=== PATIENT | male | born 1955 | race African-American/Black ===

== ENCOUNTER 2018-07-09 06:01 | Inpatient (IN) | payer OTHER ==
[2018-07-09] VITALS (12 sets, daily range): BP systolic 96–142; BP diastolic 64–95
[~2018-07-09] VITALS: Ht 182.9 cm; Wt 119.7 kg
[~2018-07-09 06:01] MED LIST: ASPIR 8181 MG ORAL; HYDROCHLOROTHIA25 MG ORAL; LOSARTAN POTAS100 MG ORAL; METFORMIN HCL1000 M1 ORAL; NIFEDIPINE ER90 M2 ORAL
[2018-07-09] MEDS ORDERED: NS Irrig 1000ml ONE (07:00)
[2018-07-09] MEDS ORDERED: LR 1000ml ONE (07:00)
[2018-07-09] MEDS ORDERED: Sterile Water Irrig 1000ml IRRIG ONE (07:00)
--- NOTE | 2018-07-09 07:08 | Pre-Procedure Note/Attestation ---
Pre-Procedure Note/Attestation Complete Prior to Procedure Planned Procedure: left Procedure Narrative: Left Knee Degenerative Joint disease, Planned procedure: Left Total Knee Resurfacing Attestation I attest that I discussed the nature of the procedure; its benefits; risks and complications; and alternatives (and the risks and benefits of such alternatives ), prior to the procedure, with the patient (or the patient's legal training representative). I attest that, if there was a reasonable possibility of needing a blood transfusion, the patient (or the patient's legal training representative) was given the [facility] standardized written summary, pursuant to the [employer] [place] Blood Safety Act ([place] Health and Safety Code # 1645, as amended). I attest that I re-evaluated the patient just prior to the surgery and that there has been no change in the patient's H&P, except as documented below: Morgan Hayward Jul 09, 2018 07:08
[2018-07-09] MEDS ORDERED: Midazolam 2mg/2ml Inj ONE (07:10)
[2018-07-09] MEDS ORDERED: fentaNYL 100 mcg/2 mL IV ONE (07:10)
[2018-07-09] MEDS ORDERED: Lidocaine 1% MPF 10mg/ml 5ml ONE (07:11)
[2018-07-09] MEDS ORDERED: Propofol 200mg/20ml IV ONE ×6 (07:11→10:03)
[2018-07-09] MEDS ORDERED: NeoSporin Gu Irrig 1ml Amp IRRIG ONE (07:15)
[2018-07-09] MEDS ORDERED: Duramorph PF 5mg/10ml amp ONE (07:15)
[2018-07-09] MEDS ORDERED: Bacitracin 50000 Units Vial ONE (07:15)
[2018-07-09] MEDS ORDERED: Bupivacaine 0.5% Inj 30 ml vial INJ ONE (07:15)
[2018-07-09] MEDS ORDERED: LR 1000ml 1,000 ML IVLG SCH (08:23)
[2018-07-09] MEDS ORDERED: HYDROmorphone 1mg/ml Carpuject IVP PRN (08:30)
[2018-07-09] MEDS ORDERED: LORazepam Inj 2mg/ml 1ml IV PRN (08:30)
[2018-07-09] MEDS ORDERED: DiphenhydrAMINE 50mg/ml Inj IVP PRN (08:30)
--- NOTE | 2018-07-09 08:30 | Anethesia Preoperative Eval ---
Anesthesia Pre-op PMH/ROS General Date of Evaluation: Jul 09, 2018 Time of Evaluation: 07:10 Anesthesiologist: Manuel ASA Score: ASA 3 Mallampati Score Class I : Soft palate, uvula, fauces, pillars visible Class II: Soft palate, uvula, fauces visible Class III: Soft palate, base of uvula visible Class IV: Only hard plate visible Mallampati Classification: Class II Surgeon: Sterling Diagnosis: Degeeratiive joint disease Surgical Procedure: Left total knee arthroplasty Family History: no anesthesia problems Allergies: Coded Allergies: No Known Allergies (Unverified , 07/09/18) Medications: see eMAR Patient NPO?: Yes NPO Date: Jul 08, 2018 NPO Time: 09:30 Past Medical History Cardiovascular: Reports: HTN; Denies: CAD, MT, valve dz, arrhythmia, other Pulmonary: Denies: asthma, COPD, LOVELY, other Gastrointestinal/Genitourinary: Denies: GERD, CRI, ESRD, other Neurologic/Psychiatric: Denies: dementia, CVA, depression/anxiety, TIA, other Endocrine: Reports: DM; Denies: hypothyroidism, steroids, other HEENT: Denies: cataract (L), cataract (R), glaucoma, KOTZEBUE (L), KOTZEBUE (R), other Hematology/Immune: Denies: anemia, DVT, bleeding disorder, other Musculoskeletal/Integumentary: Denies: OA, RA, DJD, DDD, edema, other PMH Narrative: HTN, DM PSxH Narrative: Knee scope, AP, shoulder Anesthesia Pre-op Phys. Exam Physician Exam Last Vital Signs Date Time Temp Pulse Resp B/P (MAP) Pulse Ox O2 Delivery O2 Flow Rate FiO2 07/09/18 06:20 Room Air 07/09/18 06:19 97.6 88 18 137/72 (93) 96 97.6 Constitutional: NAD Neurologic: CN 2-12 intact Cardiovascular: RRR, no M/R/G Respiratory: CTA Gastrointestinal: S/NT/ND Airway Exam Mallampati Score: Class II MO: full ROM: full Teeth: intact Anesthesia Pre-op A/P Labs WNL Accucheck 181 Studies Pre-op Studies: EKG - NSR Risk Assessment & Plan Assessment: Class 3 patient for TKR Plan: Spinal with Duramorph Status Change Before Surgery: No Pre-Antibiotics Drug: Ancef Given Within 1 Hr of Incision: Yes Time Given: 07:45 Home Jackson MD Jul 09, 2018 08:30
--- NOTE | 2018-07-09 08:32 | Immediate Post-Op Evaluation ---
Immediate Post-Op Evalulation Immediate Post-Op Evalulation Procedure: Left total knee arthroplasty Date of Evaluation: Jul 09, 2018 Time of Evaluation: 10:30 IV Fluids: 1500 Estimated Blood Loss: 150 Urinary Output: 400 Blood Pressure Systolic: 106 Blood Pressure Diastolic: 70 Pulse Rate: 72 Respiratory Rate: 10 O2 Sat by Pulse Oximetry: 100 Temperature (Fahrenheit): 98.5 Pain Score (1-10): 0 Nausea: No Vomiting: No Complications No complication Patient Status: reacts, patent, none Hydration Status: adequate Drug: Ancef Given Within 1 Hr of Incision: Yes Time Given: 07:45 Home Jackson MD Jul 09, 2018 08:32
[2018-07-09] MEDS ORDERED: Milk of Magnesia 30ml Ud ORAL PRN (10:15)
[2018-07-09] MEDS ORDERED: LORazepam 1mg tab ORAL PRN (10:15)
[2018-07-09] MEDS ORDERED: Naloxone 0.4mg/ml Inj IVP PRN (10:15)
[2018-07-09] MEDS ORDERED: PCA Education Pamphlet MISC ONE (10:15)
[2018-07-09] MEDS ORDERED: HYDROcodone/Acetamin 7.5/325 tab ORAL PRN (10:15)
[2018-07-09] MEDS ORDERED: Rate Change PCA 1 Each MISC PRN (10:15)
[2018-07-09] MEDS ORDERED: PCA HYDROmorphone 1mg/ml 30 ML IV PRN (10:15)
--- NOTE | 2018-07-09 10:28 | Operative Note - PDOC ---
Operative Note Operative Note Chief Complaint: Left Knee Pain Pre-op Diagnosis: End Stage Degenerative Joint Disease Left Knee Procedure: Left TKR Post-op Diagnosis: same as pre-op Operative Findings: consistent w/pre-op dx studies Surgeon: Sterling Carton Liner: Yesy ROMERO Anesthesiologist: Manuel Anesthesia: general Specimen: yes Complications: none Condition: stable Estimated Blood Loss: minimal Drains: hemovac Tourniquet time: 85 - min Implant(s) used?: Yes - Annmarie Natural Knee Morgan Hayward Jul 09, 2018 10:28
--- NOTE | 2018-07-09 11:43 | General Progress Note ---
Assessment/Plan Assessment/Plan End Stage Degenerative Joint Disease Left Knee Left TKR PLAN 1. incentive spirometry 2. Lovenox 3. PT evaluation and therapy 4. Hydration 5. Pain management 6. discharge once stable with outpatient follow up Subjective Allergies: Coded Allergies: No Known Allergies (Unverified , 07/09/18) Subjective post op care noted Objective Last 24 Hour Vital Signs Date Time Temp Pulse Resp B/P (MAP) Pulse Ox O2 Delivery O2 Flow Rate FiO2 07/09/18 11:37 18 07/09/18 11:30 98.5 07/09/18 11:30 98.5 73 19 111/72 99 Nasal Cannula 2.0 98.5 07/09/18 11:22 19 07/09/18 11:15 98.5 71 18 110/70 99 Nasal Cannula 2.0 98.5 07/09/18 11:07 19 07/09/18 11:00 18 07/09/18 11:00 98.5 07/09/18 11:00 70 19 112/70 99 Nasal Cannula 2.0 07/09/18 10:45 65 18 108/68 100 Simple Mask 6.0 07/09/18 10:30 68 19 96/64 100 Simple Mask 6.0 07/09/18 10:24 209.3 72 10 100 07/09/18 10:20 66 18 102/64 100 Simple Mask 6.0 07/09/18 10:15 67 19 100/65 100 Simple Mask 6.0 07/09/18 10:10 98.5 79 18 106/70 100 Simple Mask 6.0 98.5 07/09/18 06:20 Room Air 07/09/18 06:19 97.6 88 18 137/72 (93) 96 97.6 Intake and Output 07/08/18 07/09/18 19:00 07:00 # Voids 1 Height (Feet): 6 Height (Inches): 0.00 Weight (Pounds): 227 Objective WDWN NAD clear breath sounds bilaterally without rhonchi or wheeze [id number] without MRG NABS nontender no HSM no CCE nonfocal knee dressed Matt Jones MD Jul 09, 2018 11:43
--- NOTE | 2018-07-09 12:05 | Diagnostic Imaging Report ---
Indication: Left knee pain. Status post surgery 2 views of the left knee were obtained. Findings: Cemented total knee arthroplasty demonstrated normal in alignment and position. There is no acute fracture. There are anterior skin tylor, soft tissue and joint air and a small drain noted within the surgical bed. IMPRESSION: Status post total knee arthroplasty.
[2018-07-09] MEDS: Acetaminophen 500mg (ES) tab ORAL SCH ×2 (12:28→17:21)
[2018-07-09] MEDS: 1/2NS w/KCl 20mEq 1000ml 1,000 ML IV SCH ×2 (12:28→22:32)
[2018-07-09] MEDS ORDERED: Docusate 100mg cap ORAL SCH (13:00)
[2018-07-09] MEDS: ceFAZolin 1gm/50ml Premix 50 ML IV SCH (15:24)
[2018-07-09] MEDS: DiphenhydrAMINE 50mg/ml Inj IVP PRN (15:32)
[2018-07-09] MEDS: Docusate Sod/Senna tab ORAL SCH (17:22)
[2018-07-09] MEDS: PCA shift volume MISC SCH (19:56)
[2018-07-09 21:22] LABS: CREATININE 1.4 MG/DL (0.55-1.30)
[2018-07-09] MEDS ORDERED: metFORMIN 500mg tab ORAL SCH (22:00)
--- NOTE | 2018-07-09 23:45 | Operative Note - Dictated ---
DATE OF OPERATION: 07/09/2018 FACILITY: [facility]. SURGEON: Morgan Katz M.D. PAINT DIPPER: Eduin Carrington ANESTHESIOLOGIST: Dr. Jackson. ANESTHESIA: Spinal and general. PREOPERATIVE DIAGNOSIS: Tricompartmental osteoarthritis, left knee, with notable patella baja. POSTOPERATIVE DIAGNOSIS: Tricompartmental osteoarthritis, left knee, with notable patella baja. OPERATIVE PROCEDURE: Resurfacing arthroplasty, left knee using a Annmarie Natural Knee with an Ingrowth size 5 femur and Ingrowth size 4 tibial base plate with a 9 mm congruent polyethylene insert and two 45 mm APR screws. The patella was resurfaced with a 7 mm all poly insert that was cemented in place. DESCRIPTION OF OPERATIVE PROCEDURE: The patient was induced in the supine position after having an adequate spinal block instilled by Dr. Jackson. The left leg was then prepped and draped freely. A block was placed lateral to the thigh to maintain the knee in neutral position during the procedure. Also, a bump was placed on the table to facilitate holding the knee in flexion during the procedure. The leg was elevated. A proximal tourniquet was inflated to 250 mmHg. A medial parapatellar incision was made and carried down through skin and subcutaneous tissue exposing the extensor apparatus. An incision in the capsule was made medial to the patella and along the medial border of the infrapatellar ligament to the tibial tuberosity. The quads tendon was split centrally proximally for a distance of approximately 2 inches. The lateral retinaculum was released and the infrapatellar ligament was isolated so that the patella could be rotated 180 degrees to expose its articular surface. The fat pad was removed. Patella was measured and a patellar cutting jig was then inserted and a cut involving the articular surface a small amount of the posterior bone of the patella was removed leaving more than two-thirds of the patella intact. The cut surface was planed and anchoring holes were made for a size 1 all poly 7 mm polyethylene insert. The knee was then flexed and a jig was used to cannulate the distal femoral medullary canal. Alignment alexandria was used to check for weightbearing alignment. The cutting block was then placed and the distal femoral cut was made taking more medial than lateral femoral condyle in extension. The femur was then sized and a size 5 femur was chosen. The anterior, posterior, chamfer, and notch cuts were then made over the template and a trial reduction was accomplished with good fit at all surfaces. The tibia was then subluxed forward with a bent-knee retractor blunt and the remnants of the medial and lateral meniscus was removed. The PCL was recessed over the posterior border of the tibia and the tibial alignment jig was then positioned. It was checked for alignment and rotation as well as weightbearing axis. The jig was secured with 2 set pins and the proximal tibial cut was then made. Cut corresponded to that that was templated on weightbearing x-rays prior to the procedure. The central anchoring hole was made as well as the peripheral anchors and a trial tibia was placed along with a 9 mm congruent polyethylene insert. Trial reduction revealed full extension, good stability throughout range of motion to 100 degrees. The femoral and tibial components were then placed permanently using two 45 mm APR screws to anchor the tibial component and also a 9 mm polyethylene insert. Femur was tapped into place and was Ingrowth. The patella was cemented and excess cement was then removed. Range of motion tracking was checked. There was adequate contact in the groove throughout full range of motion. There was no medial or lateral instability of the patella with normal Q angle. Tourniquet was then released. Bleeders were coagulated. The medial capsule was closed with interrupted sutures of #1 Vicryl. The subcutaneous tissue and skin were closed separately. A medium Hemovac without pressurization was placed in the defect created by the lateral release. The patient was placed in a compression dressing and returned to recovery room in good condition. ESTIMATED BLOOD LOSS: 100 mL. Morgan Katz M.D. DR: Migel JOB#: [id number] CC:
[2018-07-10] VITALS: BP 134/83
[2018-07-10] MEDS: ceFAZolin 1gm/50ml Premix 50 ML IV SCH ×3 (00:13→17:33)
[2018-07-10 04:00] VITALS: BP 130/57
[2018-07-10] MEDS: PCA shift volume MISC SCH ×2 (07:38→19:45)
[2018-07-10 08:00] VITALS: BP 140/80
[2018-07-10] MEDS: 1/2NS w/KCl 20mEq 1000ml 1,000 ML IV SCH ×3 (08:59→20:30)
[2018-07-10] MEDS: DiphenhydrAMINE 50mg/ml Inj IVP PRN (09:00)
[2018-07-10] MEDS: Acetaminophen 500mg (ES) tab ORAL SCH ×3 (09:01→17:34)
[2018-07-10] MEDS: Tamsulosin 0.4mg cap ORAL SCH ×2 (09:01→17:33)
[2018-07-10] MEDS: Docusate Sod/Senna tab ORAL SCH ×2 (09:01→17:33)
--- NOTE | 2018-07-10 09:13 | 48 Hour Post Anesthesia Eval ---
Post Anesthesia Evaluation Procedure: Left total knee arthroplasty Date of Evaluation: Jul 10, 2018 Time of Evaluation: 09:45 Blood Pressure Systolic: 130 0: 57 Pulse Rate: 72 Respiratory Rate: 20 Temperature (Fahrenheit): 99.5 O2 Sat by Pulse Oximetry: 96 Airway: patent Nausea: Yes Vomiting: Yes - Treated with anti emetics Pain Intensity: 2 - Patient doing very well. Hydration Status: adequate Cardiopulmonary Status: Stable Mental Status/LOC: patient returned to baseline Follow-up Care/Observations: As per surgery Post-Anesthesia Complications: No anesthetic complication Follow-up care needed: N/A Home Jackson MD Jul 10, 2018 09:13
[2018-07-10] MEDS: Enoxaparin 40mg Inj SUBQ SCH (09:17)
[2018-07-10 12:00] VITALS: BP 132/78
[2018-07-10 16:00] VITALS: BP 148/77
[2018-07-10 20:00] VITALS: BP 141/73
[2018-07-10] MEDS: metFORMIN 500mg tab ORAL SCH (20:33)
--- NOTE | 2018-07-10 21:36 | General Progress Note ---
Assessment/Plan Assessment/Plan End Stage Degenerative Joint Disease Left Knee Left TKR PLAN 1. incentive spirometry 2. Lovenox 3. PT evaluation and therapy 4. Hydration 5. Pain management 6. discharge pending for am Subjective Allergies: Coded Allergies: No Known Allergies (Unverified , 07/09/18) Subjective post op care noted able to urinate nausea noted Objective Last 24 Hour Vital Signs Date Time Temp Pulse Resp B/P (MAP) Pulse Ox O2 Delivery O2 Flow Rate FiO2 07/10/18 20:00 20 07/10/18 20:00 99.2 98 18 141/73 (95) 92 99.2 07/10/18 16:00 98.4 88 20 148/77 (100) 94 98.4 07/10/18 16:00 20 07/10/18 12:00 20 07/10/18 12:00 97.6 85 20 132/78 (96) 96 97.6 07/10/18 09:13 211.1 72 20 96 07/10/18 09:00 Room Air 07/10/18 08:00 20 07/10/18 08:00 97.1 89 20 140/80 (100) 96 97.1 07/10/18 04:00 99.5 72 20 130/57 (81) 96 99.5 07/10/18 04:00 20 07/10/18 00:00 20 07/10/18 00:00 98.8 112 20 134/83 (100) 93 98.8 Intake and Output 07/09/18 07/10/18 19:00 07:00 Intake Total 2470 ml 1900 ml Output Total 1110 ml 870 ml Balance 1360 ml 1030 ml Intake Oral 420 ml 800 ml IV Total 2050 ml 1100 ml Output Urine Total 850 ml 250 ml Drainage Total 110 ml 620 ml Estimated Blood Loss 150 ml Height (Feet): 6 Height (Inches): 0.00 Weight (Pounds): 227 Objective WDWN NAD clear breath sounds bilaterally without rhonchi or wheeze [id number] without MRG NABS nontender no HSM no CCE nonfocal knee dressed Matt Jones MD Jul 10, 2018 21:36
[2018-07-11] MEDS: ceFAZolin 1gm/50ml Premix 50 ML IV SCH ×4 (00:02→23:46)
[2018-07-11 00:24] VITALS: BP 139/91
[2018-07-11] MEDS: 1/2NS w/KCl 20mEq 1000ml 1,000 ML IV SCH ×3 (04:00→23:46)
[2018-07-11 04:31] VITALS: BP 140/85
[2018-07-11] MEDS: PCA shift volume MISC SCH ×2 (07:12→19:00)
[2018-07-11 08:00] VITALS: BP 139/79
[2018-07-11] MEDS ORDERED: Naloxone 0.4mg/ml Inj IVP PRN (08:47)
[2018-07-11] MEDS ORDERED: DiphenhydrAMINE 50mg/ml Inj IVP PRN (09:00)
[2018-07-11] MEDS ORDERED: Rate Change PCA 1 Each MISC PRN (09:00)
[2018-07-11] MEDS: Tamsulosin 0.4mg cap ORAL SCH ×2 (09:00→17:38)
[2018-07-11] MEDS ORDERED: PCA HYDROmorphone 1mg/ml 30 ML IV PRN (09:00)
[2018-07-11] MEDS ORDERED: LORazepam 1mg tab ORAL PRN (09:00)
[2018-07-11] MEDS: Docusate Sod/Senna tab ORAL SCH ×2 (09:00→17:38)
[2018-07-11] MEDS: Acetaminophen 500mg (ES) tab ORAL SCH ×3 (09:01→17:39)
[2018-07-11] MEDS: Enoxaparin 40mg Inj SUBQ SCH (09:06)
[2018-07-11 12:00] VITALS: BP 152/86
--- NOTE | 2018-07-11 14:19 | General Progress Note ---
Assessment/Plan Assessment/Plan End Stage Degenerative Joint Disease Left Knee Left TKR PLAN 1. incentive spirometry 2. Lovenox 3. PT evaluation and therapy 4. Hydration 5. Pain management 6. discharge hopefully in am Subjective Allergies: Coded Allergies: No Known Allergies (Unverified , 07/09/18) Subjective post op care noted able to urinate some muscle spasm Objective Last 24 Hour Vital Signs Date Time Temp Pulse Resp B/P (MAP) Pulse Ox O2 Delivery O2 Flow Rate FiO2 07/11/18 09:00 Room Air 07/11/18 08:00 98.1 20 139/79 (99) 94 98.1 07/11/18 08:00 20 07/11/18 04:31 98.9 105 20 140/85 (103) 93 98.9 07/11/18 04:00 20 07/11/18 00:24 98.6 115 20 139/91 (107) 93 98.6 07/10/18 21:00 Room Air 07/10/18 20:00 20 07/10/18 20:00 99.2 98 18 141/73 (95) 92 99.2 07/10/18 16:00 98.4 88 20 148/77 (100) 94 98.4 07/10/18 16:00 20 Intake and Output 07/10/18 07/11/18 19:00 07:00 Intake Total 1325 ml 1260 ml Output Total 2250 ml 80 ml Balance -925 ml 1180 ml Intake Oral 825 ml 360 ml IV Total 500 ml 900 ml Output Urine Total 1800 ml Drainage Total 450 ml 80 ml # Voids 8 4 # Bowel Movements 1 Height (Feet): 6 Height (Inches): 0.00 Weight (Pounds): 264 Objective WDWN NAD clear breath sounds bilaterally without rhonchi or wheeze [id number] without MRG NABS nontender no HSM no CCE nonfocal knee dressed Matt Jones MD Jul 11, 2018 14:19
[2018-07-11 16:00] VITALS: BP 147/96
[2018-07-11 20:26] VITALS: BP 170/104
[2018-07-11] MEDS: metFORMIN 500mg tab ORAL SCH (21:05)
[2018-07-11] MEDS: Enoxaparin 120 mg inj SUBQ SCH (21:13)
[2018-07-12] VITALS: BP_SYST 140; BP_SYST 163; BP_DIAS 83; BP_DIAS 92
[2018-07-12 04:00] VITALS: BP 140/83
[2018-07-12] MEDS: PCA shift volume MISC SCH ×2 (07:00→19:18)
[2018-07-12 08:00] VITALS: BP 121/65
[2018-07-12] MEDS: ceFAZolin 1gm/50ml Premix 50 ML IV SCH ×2 (08:16→16:00)
[2018-07-12] MEDS: Docusate Sod/Senna tab ORAL SCH ×2 (08:17→18:05)
[2018-07-12] MEDS: Enoxaparin 120 mg inj SUBQ SCH ×2 (08:17→21:13)
[2018-07-12] MEDS: Losartan 50mg tab ORAL SCH (08:18)
[2018-07-12] MEDS: Tamsulosin 0.4mg cap ORAL SCH ×2 (08:18→18:05)
[2018-07-12] MEDS: Acetaminophen 500mg (ES) tab ORAL SCH ×3 (08:20→18:05)
[2018-07-12] MEDS: 1/2NS w/KCl 20mEq 1000ml 1,000 ML IV SCH (08:29)
--- NOTE | 2018-07-12 08:55 | General Progress Note ---
Assessment/Plan Assessment/Plan End Stage Degenerative Joint Disease Left Knee Left TKR DVT hypertension PLAN 1. incentive spirometry 2. Lovenox at DVT doses---> Xarelto 3. PT evaluation and therapy 4. antihypertensives 5. Pain management 6. discharge if ok with ortho Subjective Allergies: Coded Allergies: No Known Allergies (Unverified , 07/09/18) Subjective post op care noted acute DVT some muscle spasm elevated BP Objective Last 24 Hour Vital Signs Date Time Temp Pulse Resp B/P (MAP) Pulse Ox O2 Delivery O2 Flow Rate FiO2 07/12/18 08:20 99.2 07/12/18 08:19 110 121/65 07/12/18 08:18 121/65 07/12/18 08:00 18 07/12/18 08:00 99.2 110 19 121/65 (83) 94 99.2 07/12/18 04:00 98.0 109 18 140/83 (102) 98 98.0 07/12/18 04:00 18 07/12/18 00:00 99.5 105 18 163/92 (115) 96 99.5 07/12/18 00:00 18 07/11/18 22:57 106 170/104 07/11/18 21:00 Room Air 07/11/18 20:26 98.7 106 19 170/104 (126) 97 98.7 07/11/18 20:00 18 07/11/18 16:00 98.1 92 18 147/96 (113) 97 98.1 07/11/18 16:00 18 07/11/18 12:00 99.2 105 18 152/86 (108) 93 99.2 07/11/18 12:00 18 07/11/18 09:00 Room Air Intake and Output 07/11/18 07/12/18 19:00 07:00 Intake Total 973 ml 2000 ml Output Total 425 ml 1250 ml Balance 548 ml 750 ml Intake Oral 773 ml 800 ml IV Total 200 ml 1200 ml Output Urine Total 425 ml 1250 ml # Voids 2 3 # Bowel Movements 1 Height (Feet): 6 Height (Inches): 0.00 Weight (Pounds): 264 Objective WDWN NAD clear breath sounds bilaterally without rhonchi or wheeze [id number] without MRG NABS nontender no HSM no CCE nonfocal knee dressed aMtt Jones MD Jul 12, 2018 08:55
--- NOTE | 2018-07-12 09:15 | General Surgery Progress Note ---
General Surgery-Progress Note Subjective Procedure Performed Left TKR Objective Last 24 Hour Vital Signs Date Time Temp Pulse Resp B/P (MAP) Pulse Ox O2 Delivery O2 Flow Rate FiO2 07/12/18 08:20 99.2 07/12/18 08:19 110 121/65 07/12/18 08:18 121/65 07/12/18 08:00 18 07/12/18 08:00 99.2 110 19 121/65 (83) 94 99.2 07/12/18 04:00 98.0 109 18 140/83 (102) 98 98.0 07/12/18 04:00 18 07/12/18 00:00 99.5 105 18 163/92 (115) 96 99.5 07/12/18 00:00 18 07/11/18 22:57 106 170/104 07/11/18 21:00 Room Air 07/11/18 20:26 98.7 106 19 170/104 (126) 97 98.7 07/11/18 20:00 18 07/11/18 16:00 98.1 92 18 147/96 (113) 97 98.1 07/11/18 16:00 18 07/11/18 12:00 99.2 105 18 152/86 (108) 93 99.2 07/11/18 12:00 18 I&O Intake and Output 07/11/18 07/12/18 19:00 07:00 Intake Total 973 ml 2000 ml Output Total 425 ml 1250 ml Balance 548 ml 750 ml Intake Oral 773 ml 800 ml IV Total 200 ml 1200 ml Output Urine Total 425 ml 1250 ml # Voids 2 3 # Bowel Movements 1 Additional Comments Left leg swollen, tende. No wound drainage. Reported from Duplex study, Left Leg DVT, being treated by Dr. Jones. Orthopedic: doing well from PT / OT standpoint. Need discharge planning to coordinate treatment ordered by Morgan Reaves Jul 12, 2018 09:15
[2018-07-12 12:00] VITALS: BP 114/70
[2018-07-12 16:00] VITALS: BP 128/73
[2018-07-12 20:00] VITALS: BP 117/63
[2018-07-12] MEDS: metFORMIN 500mg tab ORAL SCH (21:10)
[2018-07-13] VITALS: BP 122/68
[2018-07-13 04:00] VITALS: BP 140/79
[2018-07-13] MEDS: PCA shift volume MISC SCH (07:00)
[2018-07-13 08:00] VITALS: BP 133/82
[2018-07-13 08:49] LABS: BASOPHILS % (AUTO) 1.2 % (0.0-2.0); EOSINOPHILS % (AUTO) 0.5 % (0.0-3.0); HEMATOCRIT 23.5 % (42.0-52.0); LYMPHOCYTES % (AUTO) 10.4 % (20.0-45.0); MEAN CORPUSCULAR VOLUME 88 FL (80-99); MONOCYTES % (AUTO) 7.5 % (1.0-10.0); NEUTROPHILS % (AUTO) 80.4 % (45.0-75.0); PLATELET COUNT 219 K/UL (150-450); RED BLOOD COUNT 2.68 M/UL (4.70-6.10); RED CELL DISTRIBUTION WIDTH 10.9 % (11.6-14.8); WHITE BLOOD COUNT 8.2 K/UL (4.8-10.8)
[2018-07-13] MEDS: Acetaminophen 500mg (ES) tab ORAL SCH ×3 (08:57→21:23)
[2018-07-13] MEDS: Tamsulosin 0.4mg cap ORAL SCH ×2 (08:57→18:23)
[2018-07-13] MEDS: Docusate Sod/Senna tab ORAL SCH ×2 (08:58→18:22)
--- NOTE | 2018-07-13 08:58 | General Progress Note ---
Assessment/Plan Assessment/Plan End Stage Degenerative Joint Disease Left Knee Left TKR DVT hypertension fever PLAN 1. incentive spirometry 2. Lovenox at DVT doses---> Xarelto x 3 months 3. PT evaluation and therapy 4. antihypertensives 5. Pain management 6. fever work up \ 7. CM to assist with RX on discharge Subjective Allergies: Coded Allergies: No Known Allergies (Unverified , 07/09/18) Subjective post op care noted acute DVT fever to 101 Objective Last 24 Hour Vital Signs Date Time Temp Pulse Resp B/P (MAP) Pulse Ox O2 Delivery O2 Flow Rate FiO2 07/13/18 04:34 99.3 07/13/18 04:04 101.1 07/13/18 04:00 101.0 109 18 140/79 (99) 94 101.0 07/13/18 04:00 18 07/13/18 00:00 99.3 111 18 122/68 (86) 95 99.3 07/13/18 00:00 18 07/12/18 21:00 Room Air 07/12/18 20:00 98.3 104 20 117/63 (81) 97 98.3 07/12/18 20:00 18 07/12/18 16:00 98.6 104 18 128/73 (91) 94 98.6 07/12/18 16:00 18 07/12/18 12:00 18 07/12/18 12:00 98.7 89 18 114/70 (85) 96 98.7 07/12/18 09:00 Room Air Intake and Output 07/12/18 07/13/18 18:59 06:59 Intake Total 600 ml 480 ml Output Total 760 ml 1425 ml Balance -160 ml -945 ml Intake Oral 400 ml 480 ml IV Total 200 ml Output Urine Total 760 ml 1425 ml # Voids 2 2 # Bowel Movements 1 Laboratory Tests 07/13/18 08:10: White Blood Count 8.2, Red Blood Count 2.68L, Hemoglobin 8.0L, Hematocrit 23.5L , Mean Corpuscular Volume 88, Mean Corpuscular Hemoglobin 29.8, Mean Corpuscular Hemoglobin Concent 34.0, Red Cell Distribution Width 10.9L, Platelet Count 219, Mean Platelet Volume 7.2, Neutrophils (%) (Auto) 80.4H, Lymphocytes (%) (Auto) 10.4L, Monocytes (%) (Auto) 7.5, Eosinophils (%) (Auto) 0.5, Basophils (%) (Auto) 1.2 Height (Feet): 6 Height (Inches): 0.00 Weight (Pounds): 264 Objective WDWN NAD clear breath sounds bilaterally without rhonchi or wheeze [id number] without MRG NABS nontender no HSM no CCE nonfocal knee dressed Matt Jones MD Jul 13, 2018 08:58
[2018-07-13] MEDS: Losartan 50mg tab ORAL SCH (08:59)
--- NOTE | 2018-07-13 09:18 | General Surgery Progress Note ---
General Surgery-Progress Note Subjective Procedure Performed Left TKR Objective Last 24 Hour Vital Signs Date Time Temp Pulse Resp B/P (MAP) Pulse Ox O2 Delivery O2 Flow Rate FiO2 07/13/18 08:59 133/82 07/13/18 08:00 99.4 107 20 133/82 (99) 98 99.4 07/13/18 04:34 99.3 07/13/18 04:04 101.1 07/13/18 04:00 101.0 109 18 140/79 (99) 94 101.0 07/13/18 04:00 18 07/13/18 00:00 99.3 111 18 122/68 (86) 95 99.3 07/13/18 00:00 18 07/12/18 21:00 Room Air 07/12/18 20:00 98.3 104 20 117/63 (81) 97 98.3 07/12/18 20:00 18 07/12/18 16:00 98.6 104 18 128/73 (91) 94 98.6 07/12/18 16:00 18 07/12/18 12:00 18 07/12/18 12:00 98.7 89 18 114/70 (85) 96 98.7 I&O Intake and Output 07/12/18 07/13/18 19:00 07:00 Intake Total 500 ml 480 ml Output Total 760 ml 1425 ml Balance -260 ml -945 ml Intake Oral 400 ml 480 ml IV Total 100 ml Output Urine Total 760 ml 1425 ml # Voids 2 2 # Bowel Movements 1 Laboratory Tests Test 07/13/18 08:10 White Blood Count 8.2 K/UL (4.8-10.8) Red Blood Count 2.68 M/UL (4.70-6.10) L Hemoglobin 8.0 G/DL (14.2-18.0) L Hematocrit 23.5 % (42.0-52.0) L Mean Corpuscular Volume 88 FL (80-99) Mean Corpuscular Hemoglobin 29.8 PG (27.0-31.0) Mean Corpuscular Hemoglobin Concent 34.0 G/DL (32.0-36.0) Red Cell Distribution Width 10.9 % (11.6-14.8) L Platelet Count 219 K/UL (150-450) Mean Platelet Volume 7.2 FL (6.5-10.1) Neutrophils (%) (Auto) 80.4 % (45.0-75.0) H Lymphocytes (%) (Auto) 10.4 % (20.0-45.0) L Monocytes (%) (Auto) 7.5 % (1.0-10.0) Eosinophils (%) (Auto) 0.5 % (0.0-3.0) Basophils (%) (Auto) 1.2 % (0.0-2.0) Additional Comments Patient developed temp. overnight >> Dr. Jones following / working up. Orthopedic: stable, doing PT / OT will be on anti-coagulation per Dr. Jones for several months. Morgan Hayward Jul 13, 2018 09:18
[2018-07-13] MEDS: Xarelto 15mg tab ORAL SCH ×2 (10:05→18:23)
--- NOTE | 2018-07-13 10:40 | Diagnostic Imaging Report ---
Indication: Dyspnea Comparison: None A single view chest radiograph was obtained. Findings: No definite infiltrate or pulmonary vascular congestion identified accounting for low lung volumes. The heart is enlarged. The aorta is mildly enlarged consistent with atherosclerotic vascular disease. The bones are osteopenic. Impression: No acute disease
[2018-07-13 12:00] VITALS: BP 126/74
[2018-07-13 16:00] VITALS: BP 132/81
[2018-07-13] MEDS: HYDROmorphone 1mg/ml Carpuject SUBQ PRN (16:49)
[2018-07-13 20:00] VITALS: BP 136/76
[2018-07-13] MEDS: metFORMIN 500mg tab ORAL SCH (21:22)
[2018-07-14] VITALS: BP 125/77
[2018-07-14] MEDS: HYDROmorphone 1mg/ml Carpuject SUBQ PRN (00:45)
[2018-07-14 04:00] VITALS: BP 132/83
[2018-07-14] MEDS: Acetaminophen 500mg (ES) tab ORAL SCH ×3 (06:20→21:38)
[2018-07-14 08:37] VITALS: BP 145/83
[2018-07-14] MEDS: Docusate Sod/Senna tab ORAL SCH ×2 (09:15→18:00)
[2018-07-14] MEDS: Losartan 50mg tab ORAL SCH (09:16)
[2018-07-14] MEDS: Tamsulosin 0.4mg cap ORAL SCH ×2 (09:16→18:00)
[2018-07-14] MEDS: Xarelto 15mg tab ORAL SCH ×2 (09:17→18:00)
[2018-07-14] MEDS: Norco 5mg/325mg tab ORAL PRN (09:21)
--- NOTE | 2018-07-14 09:21 | General Progress Note ---
Assessment/Plan Assessment/Plan End Stage Degenerative Joint Disease Left Knee Left TKR DVT hypertension fever PLAN 1. incentive spirometry 2. Xarelto x 3 months 3. PT evaluation and therapy 4. antihypertensives 5. Pain management 6. fever work up negative 7. dc today if able Subjective Allergies: Coded Allergies: No Known Allergies (Unverified , 07/09/18) Subjective post op care noted acute DVT calf fever low grade Objective Last 24 Hour Vital Signs Date Time Temp Pulse Resp B/P (MAP) Pulse Ox O2 Delivery O2 Flow Rate FiO2 07/14/18 09:16 110 145/83 07/14/18 09:16 145/83 07/14/18 08:37 99.0 110 19 145/83 (103) 100 99.0 07/14/18 06:20 100.2 07/14/18 04:00 100.5 103 19 132/83 (99) 99 100.5 07/14/18 00:45 99.7 07/14/18 00:00 98.3 98 19 125/77 (93) 93 98.3 07/13/18 21:00 Room Air 07/13/18 20:00 99.7 100 19 136/76 (96) 93 99.7 07/13/18 16:00 98.4 102 20 132/81 (98) 95 98.4 07/13/18 12:00 98.7 110 20 126/74 (91) 95 98.7 07/13/18 10:05 107 133/82 Intake and Output 07/13/18 07/14/18 19:00 07:00 Intake Total 840 ml Output Total 1200 ml 800 ml Balance -360 ml -800 ml Intake Oral 840 ml Output Urine Total 1200 ml 800 ml Height (Feet): 6 Height (Inches): 0.00 Weight (Pounds): 264 Objective WDWN NAD clear breath sounds bilaterally without rhonchi or wheeze [id number] without MRG NABS nontender no HSM no CCE nonfocal knee dressed Matt Jones MD Jul 14, 2018 09:21
[2018-07-14 12:58] VITALS: BP 133/80
[2018-07-14] MEDS ORDERED: Fleet's Mineral Oil Enema RECTAL SCH (16:00)
[2018-07-14 16:08] VITALS: BP 136/86
[2018-07-14 20:00] VITALS: BP 138/82
[2018-07-14] MEDS: metFORMIN 500mg tab ORAL SCH (20:46)
[2018-07-15] VITALS: BP 140/85
[2018-07-15 04:00] VITALS: BP 129/77
[2018-07-15] MEDS: Norco 5mg/325mg tab ORAL PRN (04:28)
[2018-07-15] MEDS: Acetaminophen 500mg (ES) tab ORAL SCH ×3 (06:00→21:27)
--- NOTE | 2018-07-15 07:52 | General Progress Note ---
Assessment/Plan Assessment/Plan End Stage Degenerative Joint Disease Left Knee Left TKR DVT hypertension fever PLAN 1. monitor constipation 2. Xarelto x 3 months 3. PT evaluation and therapy 4. antihypertensives 5. Pain management 6. fever work up negative 7. dc in am when RX confirmed approved Subjective Allergies: Coded Allergies: No Known Allergies (Unverified , 07/09/18) Subjective post op care noted acute DVT calf fever low grade resolved constipated s/p enema Objective Last 24 Hour Vital Signs Date Time Temp Pulse Resp B/P (MAP) Pulse Ox O2 Delivery O2 Flow Rate FiO2 07/15/18 04:00 99.1 101 20 129/77 (94) 97 99.1 07/15/18 00:00 99.9 99 19 140/85 (103) 94 99.9 07/14/18 21:17 98.8 07/14/18 21:15 98.8 98.8 07/14/18 21:00 Room Air 07/14/18 20:47 101.0 07/14/18 20:00 101.0 102 18 138/82 (100) 99 101.0 07/14/18 16:08 99.8 107 19 136/86 (103) 94 99.8 07/14/18 12:58 98.6 103 20 133/80 (97) 98.6 07/14/18 09:51 99.0 07/14/18 09:21 99.0 07/14/18 09:16 110 145/83 07/14/18 09:16 145/83 07/14/18 09:00 Room Air 07/14/18 08:37 99.0 110 19 145/83 (103) 100 99.0 Intake and Output 07/14/18 07/15/18 19:00 07:00 Intake Total 860 ml 1600 ml Output Total 700 ml 850 ml Balance 160 ml 750 ml Intake Oral 860 ml 1600 ml Output Urine Total 700 ml 850 ml # Voids 1 # Bowel Movements 2 Height (Feet): 6 Height (Inches): 0.00 Weight (Pounds): 264 Objective WDWN NAD clear breath sounds bilaterally without rhonchi or wheeze [id number] without MRG NABS nontender no HSM no CCE nonfocal knee dressed Matt Jones MD Jul 15, 2018 07:52
[2018-07-15 08:00] VITALS: BP 147/84
[2018-07-15] MEDS: Docusate Sod/Senna tab ORAL SCH ×2 (08:23→17:19)
[2018-07-15] MEDS: Losartan 50mg tab ORAL SCH (08:23)
[2018-07-15] MEDS: Tamsulosin 0.4mg cap ORAL SCH ×2 (08:23→17:19)
[2018-07-15] MEDS: Xarelto 15mg tab ORAL SCH ×2 (08:23→17:19)
[2018-07-15 12:00] VITALS: BP 141/80
[2018-07-15 16:00] VITALS: BP 137/80
[2018-07-15 20:00] VITALS: BP 99/70
[2018-07-15] MEDS: metFORMIN 500mg tab ORAL SCH (21:26)
[2018-07-16] VITALS: BP 115/70
[2018-07-16 04:00] VITALS: BP 143/75
[2018-07-16] MEDS: Acetaminophen 500mg (ES) tab ORAL SCH ×2 (05:31→14:58)
[2018-07-16 08:00] VITALS: BP 146/84
[2018-07-16 08:09] VITALS: BP 146/84
--- NOTE | 2018-07-16 08:51 | General Progress Note ---
Assessment/Plan Assessment/Plan End Stage Degenerative Joint Disease Left Knee Left TKR DVT hypertension fever PLAN 1. routine care 2. Xarelto x 3 months 3. PT evaluation and therapy 4. antihypertensives 5. Pain management 6. dc today pending fill of RX Subjective Allergies: Coded Allergies: No Known Allergies (Unverified , 07/09/18) Subjective post op care noted constipated s/p enema ambulatory Objective Last 24 Hour Vital Signs Date Time Temp Pulse Resp B/P (MAP) Pulse Ox O2 Delivery O2 Flow Rate FiO2 07/16/18 08:09 98.6 110 21 146/84 (104) 98.6 07/16/18 04:00 99.8 100 18 143/75 (97) 98 99.8 07/16/18 00:15 98.6 99 98.6 07/16/18 00:00 99.2 98 18 115/70 (85) 91 99.2 07/15/18 21:00 Room Air 07/15/18 20:00 99.2 106 18 99/70 (80) 96 99.2 07/15/18 16:00 98.5 103 18 137/80 (99) 96 98.5 07/15/18 15:31 99.1 07/15/18 14:19 99.1 07/15/18 12:00 99.1 112 20 141/80 (100) 92 99.1 07/15/18 09:00 Room Air Intake and Output 07/15/18 07/16/18 19:00 07:00 Intake Total 500 ml Output Total 800 ml 850 ml Balance -300 ml -850 ml Intake Oral 500 ml Output Urine Total 800 ml 850 ml # Voids 3 3 Height (Feet): 6 Height (Inches): 0.00 Weight (Pounds): 264 Objective WDWN NAD clear breath sounds bilaterally without rhonchi or wheeze [id number] without MRG NABS nontender no HSM no CCE nonfocal knee dressed Matt Jones MD Jul 16, 2018 08:51
[2018-07-16] MEDS: Docusate Sod/Senna tab ORAL SCH (09:00)
[2018-07-16] MEDS: Xarelto 15mg tab ORAL SCH (09:43)
[2018-07-16] MEDS: Losartan 50mg tab ORAL SCH (09:44)
[2018-07-16] MEDS: Tamsulosin 0.4mg cap ORAL SCH (09:44)
[2018-07-16] MEDS ORDERED: Tubing IV Secondary IV ONE (10:38)
[2018-07-16 12:00] VITALS: BP 130/78
[2018-07-16] MEDS ORDERED: XARELTO20 MG ORAL (14:17)
[2018-07-16] MEDS ORDERED: XARELTO15 MG ORAL (14:17)
[2018-07-16] MEDS ORDERED: NORCO 5-325 TA1 EACH ORAL (14:30)
--- NOTE | 2018-07-17 14:31 | Discharge Summary ---
Discharge Summary Hospital Course Date of Admission Jul 09, 2018 at 06:01 Date of Discharge Jul 16, 2018 at 15:40 Admitting Diagnosis End Stage Of Degenerative joint disease Left knee Reason for Hospitalization: elective surgery HPI James Bhatti is a 62 year old male who was admitted on Jul 09, 2018 at 06:01 for end stage of Degenerative joint disease Left knee. Patient was admitted for elective surgery. Consultations dr Jones -IM Procedures s/p 07/09/[address] Katz Resurfacing arthroplasty, left knee using a Annmarie Natural Knee with an Ingrowth size 5 femur and Ingrowth size 4 tibial base plate with a 9 mm congruent polyethylene insert and two 45 mm APR screws. The patella was resurfaced with a 7 mm all poly insert that was cemented in place. Hospital Course status post surgery initially IV fluids s/p perioperative antibiotics neurovascular status closely monitored, remained stable incision clean dry and intact pain management addressed hemodynamically stable DVT prophylaxis provided Venous Duplex LLE revealed acute DVT calf /posterior tibial started on treatment with Lovenox and transitioned to Xarelto ; Xarelto to be continued for 3 months , repeat venous Duplex at that time ambulated with PT /OT fall precautions maintained; safe for ambulation tolerated diet , IV fluids discontinued GI prophylaxis provided antiemetics were on board as needed blood pressure was managed with calcium channel danny and ARB, remained stable blood sugar was closely monitored, oral anti-glycemic medications resumed along with sliding scale of insulin as needed voided freely, Flomax continued bowel regimen instituted patient was stable for discharge discharge instructions provided follow up with surgeon as outpatient as advised by surgeon FINAL DIAGNOSES 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 s/p Left TKR 07/09/18 acute DVT LLE hypertension diabetes mellitus Discharge Medications Changed Medications: Rivaroxaban (Xarelto) 15 Mg Tablet 15 MG ORAL BID for 20 Days, #40 MG 0 Refills (Medication details modified) Take last dose on 07/30/2018 Rivaroxaban (Xarelto) 20 Mg Tablet 20 MG ORAL DAILY for 70 Days, #70 MG 0 Refills (Medication details modified) Start taking on 07/31/2018 Continued Medications: Hydrochlorothiazide* (Hydrochlorothiazide*) 25 Mg Tablet 25 MG ORAL DAILY, TAB (This prescription has been renewed) Hydrocodone Bit/Acetaminophen 5-325* ([place] 5-325*) 1 Each Tablet 1-2 TAB ORAL Q4H PRN for For Pain, #50 TAB 0 Refills (This prescription has been renewed) Losartan Potassium (Losartan Potassium) 100 Mg Tablet 100 MG ORAL DAILY, TAB (This prescription has been renewed) Metformin Hcl* (Metformin Hcl*) 1,000 Mg Tablet 1000 MG ORAL DAILY, TAB (This prescription has been renewed) Nifedipine Er* (Nifedipine Er*) 90 Mg Tablet.er 90 MG ORAL DAILY, TAB (This prescription has been renewed) Discharge Condition Upon Discharge: stable Discharge Disposition Patient was discharged to Home with Home Health(06) Discharge Instructions Discharge Instructions Special Instructions I have been assigned to complete a D/C Summary on this account. I was not involved in the patient management Sadie Medrano NP Jul 17, 2018 14:31
== END 2018-07-16 15:40 | disposition home health service (06) | DRG 470 ==
LOC: SDSOVERFLO 06:01 → 3E 11:30
PROC: 0SRD0J9 Replacement of Left Knee Joint with Synthetic Substitute, Cemented, Open Approach (ICD-10-PCS; principal; 2018-07-09 07:30)
DX: M17.12 Unilateral primary osteoarthritis, left knee (principal); I82.442 Acute embolism and thrombosis of left tibial vein; E11.9 Type 2 diabetes mellitus without complications; I10 Essential (primary) hypertension; R91.1 Solitary pulmonary nodule; M54.9 Dorsalgia, unspecified; M79.642 Pain in left hand; R50.82 Postprocedural fever
CPT/HCPCS: 36415; 71045; 82565; 82962; 85025; 86850; 86900; 86901; 87040; 87070; 87081; 87086; 87205; 93970; 94003; 94150; C9399; J2250; J2405